=== PATIENT | male | born 2000 | race Caucasian/White ===

== ENCOUNTER 2024-09-16 09:17 | Emergency (ER) | payer BC, SELFPAY ==
[2024-09-16 09:18] VITALS: BP 136/90; PULSE 91; RESP 16; TEMP 36.9; O2SAT 100; BMI 23.7
[2024-09-16 11:12] VITALS: BP 128/65; PULSE 77; RESP 18; TEMP 37.1; O2SAT 100
== END 2024-09-16 11:13 | disposition home or self-care (01) ==
PROVIDERS: Emergency Provider Emergency Medicine; PCP Student in an Organized Health Care Education/Training Program; Visit Provider Emergency Medicine
DX: S93.402A Sprain of unspecified ligament of left ankle, initial encounter (principal); X50.1XXA Overexertion from prolonged static or awkward postures, initial encounter; Y93.67 Activity, basketball; R03.0 Elevated blood-pressure reading, without diagnosis of hypertension
CPT/HCPCS: 73610; 73630; 99282